=== PATIENT | female | born 1950 | race Caucasian/White ===

== ENCOUNTER 2024-03-11 09:51 | Outpatient (AMB) | payer MEDICARE, BC, SELFPAY ==
--- NOTE | 2024-03-11 10:19 | A.SPINEOV_ITS ---
Intake Visit Reasons: Back pain Intake Note: Ms. Cervantes is here today c/o back pain. Fraud Investigator Required: No Allergies Penicillins Allergy (Unknown, Verified 03/11/24 10:21) Unknown Assessment & Plan Assessment & Plan (1) Chronic thoracic back pain: Code(s): M54.6 - Pain in thoracic spine; G89.29 - Other chronic pain Category: Medical Qualifiers: Back pain laterality: midline Qualified Code(s): M54.6 - Pain in thoracic spine; G89.29 - Other chronic pain Plan Dear colleague Thank you for referring Telma Cervantes to the office today with a chief complain t of intermittent midthoracic pain. HPI: This 74-year-old female had a trauma in the past when she fell down the stairs. Her back was black and blue in the midthoracic area. Since then she has intermittent severe pain in the midthoracic area. She feels it coming on and usually is able to treated with medications. Lifting heavy objects also produces the pain in the midthoracic area. No motor deficits no sensory deficits no bowel urinary problems. She had a recent cardiac ablation in his therefore not allowed to take anti-inflammatories, which were normally able to alleviate symptoms. She has known with a osteopenia for which she takes vitamin-D. Physical Exam: Pleasant female. Not in obvious agony. She is able to move in all directions without pain. No neurological deficits or motor or sensation. Radiological Studies: CT scan of the thoracic and lumbar spine on 02/06/2024 show no fractures. There is increased kyphosis at the T8-T9 area Impression/Plan: This patient pain is most likely originates from the thoracic facet joints that are over reacting with excessive flexion and weight. The CT scan also shows diffuse osteopenia. We recommended to add calcium to the medications as vitamin-D alone does not prevent or treat osteoporosis. She may also try Voltaren cream during the episodes of pain. Thank you for allowing me to participate in your patients care. total time spent was 35 minutes in counseling ,coordination of plan, personal review of imaging, surgical decision making and subsequent plan Misha Borwn MD, PhD Sp[facility] Trained Neurosurgeon Director, [facility] Coding Level of Care Code New Pt Level 3 (50918) Diagnoses Chronic midline thoracic back pain M54.6; G89.29 Back pain laterality: midline
== END 2024-03-11 10:33 | disposition home or self-care (01) ==
PROVIDERS: PCP Internal Medicine Endocrinology, Diabetes & Metabolism; Visit Provider Neurological Surgery
DX: M54.6 Pain in thoracic spine (principal); G89.29 Other chronic pain
CPT/HCPCS: 99203

== ENCOUNTER → 2024-03-11 09:51 | Outpatient (BNVA) | payer MEDICARE, BC, SELFPAY | PROVIDERS: PCP Internal Medicine Endocrinology, Diabetes & Metabolism; Visit Provider Neurological Surgery | DX: M54.6 Pain in thoracic spine (principal); G89.29 Other chronic pain | CPT/HCPCS: 99202 ==